=== PATIENT | male | born 1940 | race Caucasian/White ===

== ENCOUNTER → 2022-01-18 | Outpatient (CLI) | payer MEDICARE, SELFPAY ==
--- NOTE | 2022-01-18 13:00 | PET_ITS ---
STUDY: WHOLE-BODY PET STUDY REASON FOR EXAM: Male, 81 years old. LUNG NODULE RADIATION DOSAGE (If Supplied By Facility): CTDIvol = ( 7.21 ) mGy, DLP = ( 632.96 ) mGycm. Individualized dose optimization techniques were used for this CT.? TECHNIQUE: Whole-body multiplanar pet study performed after administration of 11.5 mCi of F-[address] scan obtained simultaneously. COMPARISON: 2014 FINDINGS: There is abnormal increased PET activity noted in a noncalcified lung nodule in the left upper lobe. Uptake levels measure 19.09 consistent with a metabolically active neoplastic process. Tissue sampling is recommended for further evaluation. There is no other suspicious increased PET activity identified. There is subtle activity noted in both lung mcbride which corresponds to inflammatory changes within the lower lung mcbride uptake levels measure less than 2. Normal physiologic activity is noted in the brain parenchyma, salivary glands, heart, liver, spleen, GI and systems. The noncontrasted CT scan shows no abnormalities in the visualized brain parenchyma. No suspicious bulky adenopathy in the soft tissues of the neck. Normal-appearing thyroid. 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 As mentioned there is chronic interstitial changes in both lung mcbride with subtle inflammatory changes in the lower lung mcbride there is no other suspicious noncalcified mass or nodule aside from the one in the left upper lobe already mentioned. No suspicious solid organ abnormality, there are hepatic and renal cysts. No suspicious mesenteric or retroperitoneal adenopathy. 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 Bony structures show degenerative change. PET/PET/CT Tumor Base -Thigh Init IMPRESSION: Abnormal increased activity in a noncalcified nodule in the left upper lobe measuring 19.09 consistent with metabolically active process. Since there are no recent studies available for comparison, tissue sampling is recommended for further evaluation. Electronically Signed: Tacho Real MD at 11:02 EDT ,
== END | disposition home or self-care (01) ==
PROVIDERS: PCP Family Medicine; Referring Provider Internal Medicine Pulmonary Disease; Visit Provider Internal Medicine Pulmonary Disease
DX: R91.8 Other nonspecific abnormal finding of lung field (principal)
CPT/HCPCS: 78814; 78815; A9588